=== PATIENT | male | born 1975 | race Caucasian/White ===

== ENCOUNTER 2020-10-25 19:06 | Emergency (ER) | payer SELFPAY ==
[~2020-10-25] VITALS: Ht 190.5 cm; Wt 97.0 kg
[2020-10-25 19:09] VITALS: BP 138/78
== END 2020-10-25 21:00 | disposition left against medical advice (07) ==
LOC: ER 19:29
DX: R11.2 Nausea with vomiting, unspecified (principal); Z53.21 Procedure and treatment not carried out due to patient leaving prior to being seen by health care provider

== ENCOUNTER 2021-05-15 10:31 | Emergency (ER) | payer MEDICAID ==
[~2021-05-15] VITALS: Ht 188 cm; Wt 77.0 kg
[2021-05-15 10:50] VITALS: BP 117/78
[2021-05-15] MEDS ORDERED: LIDOCAINE HCL/EPINEPHRINE 1%-EPI 1:100,000 10 ML VIAL INFIL NR (11:56)
[2021-05-15] MEDS ORDERED: BACITRACIN ZINC OINT UDPKT TOP ONE (12:00)
[2021-05-15] MEDS ORDERED: LIDOCAINE HCL/EPINEPHRINE 1%-EPI 1:100,000 20 ML VIAL INFIL ONE (12:00)
[2021-05-15] MEDS ORDERED: SULF1TAB48 MT (12:42)
== END 2021-05-15 13:18 | disposition home or self-care (01) ==
LOC: ER 10:41
DX: L08.89 Other specified local infections of the skin and subcutaneous tissue (principal); L72.8 Other follicular cysts of the skin and subcutaneous tissue; E11.9 Type 2 diabetes mellitus without complications; I10 Essential (primary) hypertension
CPT/HCPCS: 10060; 99283; J3490

== ENCOUNTER 2021-06-09 09:00 | Emergency (ER) | payer SELFPAY ==
[~2021-06-09] VITALS: Ht 188 cm; Wt 77.0 kg
[~2021-06-09 09:00] MED LIST: SULF1TAB48 MT
[2021-06-09] MEDS ORDERED: LIDOCAINE HCL/EPINEPHRINE 1%-EPI 1:100,000 20 ML VIAL INFIL ONE (09:30)
[2021-06-09 10:04] VITALS: BP 123/81
== END 2021-06-09 10:05 | disposition home or self-care (01) ==
LOC: ER 09:00
DX: L02.412 Cutaneous abscess of left axilla (principal); E11.9 Type 2 diabetes mellitus without complications; I10 Essential (primary) hypertension
CPT/HCPCS: 10060; 82962; 99284

== ENCOUNTER 2021-06-27 14:15 | Emergency (ER) | payer MEDICAID ==
[~2021-06-27] VITALS: Ht 188 cm; Wt 77.0 kg
[2021-06-27 14:21] VITALS: BP 111/81
[2021-06-27 16:48] LABS: CLARITY URINE CLEAR (CLEAR); COLOR URINE YELLOW (YELLOW); KETONES URINE NEGATIVE (NEGATIVE); LEUKOCYTE ESTERASE URINE TRACE (NEGATIVE); NITRITE URINE NEGATIVE (NEGATIVE); OCCULT BLOOD URINE NEGATIVE (NEGATIVE); PH URINE 5.5 (4.5-8.0); PROTEIN URINE NEGATIVE (NEGATIVE); SPECIFIC GRAVITY URINE 1.011 (1.005-1.030); UROBILINOGEN URINE 0.2 E.U./dL (0.2-1.0)
[2021-06-27 17:18] LABS: BASOPHILS % 1.1 % (0.0-2.0); EOSINOPHILS % 5.5 % (0.0-5.0); HEMOGLOBIN. 13.1 g/dL (14.0-18.0); LYMPHOCYTES % 29.5 % (20.0-50.0); MEAN CORPUSCULAR HEMOGLOBIN 32.1 pg (28.0-32.0); MEAN CORPUSCULAR VOLUME 95.4 fL (80.0-94.0); MEAN PLATELET VOLUME 8.7 fl (7.4-10.4); NEUTROPHILS % 57.9 % (40.0-76.0); PLATELET 246 x1000/uL (130-400); RED BLOOD CELL COUNT 4.09 mill/uL (4.7-6.1)
[2021-06-27 17:22] LABS: CHLORIDE 109 mEq/L (98-107)
== END 2021-06-27 17:59 | disposition left against medical advice (07) ==
LOC: ER 14:15
DX: R35.0 Frequency of micturition (principal); I10 Essential (primary) hypertension; E11.9 Type 2 diabetes mellitus without complications
CPT/HCPCS: 36415; 76770; 76872; 80053; 81003; 82962; 85025; 99284

== ENCOUNTER 2021-06-28 13:55 | Emergency (ER) | payer MEDICAID ==
[~2021-06-28] VITALS: Ht 188 cm; Wt 77.0 kg
[2021-06-28 15:32] VITALS: BP 123/90
== END 2021-06-28 15:56 | disposition home or self-care (01) ==
LOC: ER 13:55
DX: R35.0 Frequency of micturition (principal); E11.9 Type 2 diabetes mellitus without complications; I10 Essential (primary) hypertension
CPT/HCPCS: 99281